=== PATIENT | female | born 1970 | race Caucasian/White ===

== ENCOUNTER 2016-11-17 22:56 | Emergency (ER) | payer OTHER ==
--- NOTE | 2016-11-18 02:39 | ED CLINICAL REPORT ---
Clinical Report - Physicians/Mid Levels [facility] [address] [place] [address] 11/17/2016 22:57 Patient: KEESHA OLIVAS Time Seen: 23:04 Nov 17 2016. Arrived- By private vehicle. Historian- patient. CPT: ER phys charges level 4 (#[id number]). HISTORY OF PRESENT ILLNESS Chief Complaint: PELVIC PAIN and VAGINAL PAIN. This started yesterday and still present. The symptoms are described as moderate. Modifying factors- relieved by rest. (Worse with exertion.). The patient has had pelvic pain and vaginal pain. No abnormal bleeding, vaginal discharge, pain with urination, urinary frequency or urgency of urination. No hematuria. (Stress incontinence.). Similar symptoms previously: Recent medical care: Not recently seen/assessed. REVIEW OF SYSTEMS No nausea, vomiting, diarrhea, fever or chills. No sore throat, cough, difficulty breathing, chest pain or skin rash. No enlarged lymph nodes or joint pain. All systems otherwise negative, except as recorded above. PAST HISTORY ( Admission CVA, discharged 2 days ago. Oxycodone filled 2 days ago. BEN and bladder sling. Congestive Heart Failure. CVA - Cerebrovascular Accident. Dyspnea. Chest Pain. Coronary Artery Disease. Pulmonary Embolism. Heart Disease. LNMP - Last Normal Menstrual Period. GERD. Liver lesion. Gastritis. Esophagitis. Hypertension. Cardiomyopathy. ADDITIONAL SURGERIES: Appendectomy. Bladder Suspension. Cardiac Procedures. Colonoscopy. Exploratory laparotomy. Gallbladder Surgery. Hysterectomy. Laparoscopy. Nasal septoplasty. Oophorectomy.). Medications: OxyCODONE HCl Oral. Carvedilol 6.25 mg, 2x a day. Atorvastatin Calcium Oral (Tablet 80 mg) 1 tablet, at bedtime. Aspirin Oral (Tablet Chewable 81 mg) 1 tablet, daily. Lorsartan 100mg, daily. Topiramate Oral (Tablet 25 mg) 1 tablet, at bedtime. Allergies: Amitriptyline. Toradol. SOCIAL HISTORY Never smoker. No alcohol use or drug use. ADDITIONAL NOTES The nursing notes have been reviewed. PHYSICAL EXAM Vital Signs: 11/17/2016 23:08 BP: 141/87. HR: 67. RR: 16. O2 saturation: 98%. Temp: 98.1 F. Pain level now: 8/10. Appearance: Alert. No acute distress. Anxious. HEENT: Normal external inspection. ENT: Pharynx normal. Neck: Neck supple. CVS: Heart sounds normal. Respiratory: No respiratory distress. Breath sounds normal. Chest nontender. Abdomen: Soft and nontender. Back: Normal external inspection. : No vaginal discharge or bleeding. Tenderness present on bimanual exam (Cystocele present with pain on motion.). (No sign of infection). Skin: Skin warm. Normal skin color. No rash. Extremities: Extremities nontender. Neuro: Oriented X 3. Mood/affect normal. No motor deficit. No sensory deficit. LABS, X-RAYS, AND EKG Laboratory Tests: UA-Culture if indicated: (SAUL: 11/18/2016 00:01) ( [facility] [place] Final results Test Result Flag Units (Reference) URINE COLOR YELLOW URINE APPEARANCE SLIGHTLY HAZY URINE GLUCOSE NEGATIVE (NEGATIVE) URINE BILIRUBIN NEGATIVE (NEGATIVE) URINE KETONE NEGATIVE (NEGATIVE) URINE SPECIFIC GRAVITY 1.020 (1.010-1.030) URINE PH 6.0 (5.0-8.0) URINE PROTEIN NEGATIVE (NEGATIVE) URINE UROBILINOGEN 0.2 EU/dL (0.2-1.0) URINE NITRITE POSITIVE (NEGATIVE) URINE BLOOD NEGATIVE (NEGATIVE) URINE LEUK ESTERASE POSITIVE (NEGATIVE) URINE RBC 0-1 rbc/hpf (0-1) URINE WBC 3-5 wbc/hpf (0-1) URINE EPITHELIAL CELLS 5-10 EPI/hpf (0-5) URINE BACTERIA MODERATE (2+ TO 3+) (NONE SEEN) URINE COMMENT CULTURE INDICATED TRICHOMONAS NOTED.URINE CULTURES ARE SET-UP BASED ON THE FOLLOWING CRITERIA:POSITIVE NITRITEPOSITIVE LEUKOCYTE ESTERASEGREATER THAN 10 WHITE BLOOD CELLSMODERATE (2+) OR GREATER BACTERIA CBC w Diff: (SAUL: 11/18/2016 00:20) ( [facility] [place]/18[place] 00:40) Final results Test Result Flag Units (Reference) WHITE BLOOD COUNT 8.2 K/uL (4.5-11.5) RED BLOOD COUNT 4.92 M/uL (4.00-5.20) HEMOGLOBIN 15.0 gm/dL (12.0-16.0) HEMATOCRIT 44.8 % (36.0-46.0) MEAN CELL VOLUME 91 fL (80-100) MEAN CORPUSCULAR HGB 31 pg (26-34) MEAN CORPUSCULAR HGB CONC 34 g/dL (31-37) RED CELL DISTRIBUTION WIDTH 13.0 % (11.6-14.8) PLATELET COUNT 231 K/uL (150-400) LYMPH % 31.9 % (25-40) MONO % 7.0 % (3-14) GRANULOCYTE % 61.1 (53-90) Culture, Urine: (SAUL: 11/18/2016 00:00) ( Msg[facility]cv[facility] 11/19/2016 11:24) IP Test Result Flag Units (Reference) CULTURE, URINE DATE: 11/19/16 PRELIM REPORT: PRELIMINARY REPORT #1 -- GNR QUANTITATIVE URINE GROWTH: GREATER THAN 100,000 CFU/mL ID AND SENS TO FOLLOW: IDENTIFICATION AND SENSITIVITY TO FOLLOW . PROGRESS AND PROCEDURES Patient/family counseled. Disposition: Discharged. Condition: stable. CLINICAL IMPRESSION Medium midline cystocele (Painful.). Acute urinary tract infection with cystitis. Out of meds. INSTRUCTIONS No strenuous activity. Rest. No sexual contact until released. Warnings: Further evaluation is necessary. GENERAL WARNINGS: Return or contact your physician immediately if your condition worsens or changes unexpectedly, if not improving as expected, or if other problems arise. Your Current Medications: CONTINUE TAKING THE FOLLOWING MEDICATIONS: Aspirin Oral : Tablet Chewable 81 mg, 1 tablet daily. Atorvastatin Calcium Oral : Tablet 80 mg, 1 tablet at bedtime. Carvedilol* : 6.25 mg 2x a day. Lorsartan* : 100mg daily. OxyCODONE HCl Oral. Topiramate Oral : Tablet 25 mg, 1 tablet at bedtime. Prescription Medications: Septra DS 800 mg / 160 mg: take 1 tablet orally every 12 hours for 7 days. Dispense fourteen (14). No refills. Substitution is permissible. Oxycodone/APAP 5 mg/325 mg: take 1 tablet orally every 6 hours as needed for pain. Dispense fifteen (15). No refills. Understanding of the discharge instructions verbalized by patient. Follow-up with: Peng Montoya MD, Obstetrics/Gynecology, , [facility], [address] [place] [address] Follow up in five days. Call for an appointment. Reason for referral: For evaluation of painful cystocele. (Electronically signed by Zafar Rivers MD 11/19/2016 13:38)
--- NOTE | 2016-11-18 02:39 | ED CLINICAL REPORT ---
Clinical Report - Physicians/Mid Levels [facility] [address] [place] [address] 11/17/2016 22:57 Patient: KEESHA OLIVAS Time Seen: 23:04 Nov 17 2016. Arrived- By private vehicle. Historian- patient. CPT: ER phys charges level 4 (#[id number]). HISTORY OF PRESENT ILLNESS Chief Complaint: PELVIC PAIN and VAGINAL PAIN. This started yesterday and still present. The symptoms are described as moderate. Modifying factors- relieved by rest. (Worse with exertion.). The patient has had pelvic pain and vaginal pain. No abnormal bleeding, vaginal discharge, pain with urination, urinary frequency or urgency of urination. No hematuria. (Stress incontinence.). Similar symptoms previously: Recent medical care: Not recently seen/assessed. REVIEW OF SYSTEMS No nausea, vomiting, diarrhea, fever or chills. No sore throat, cough, difficulty breathing, chest pain or skin rash. No enlarged lymph nodes or joint pain. All systems otherwise negative, except as recorded above. PAST HISTORY ( Admission CVA, discharged 2 days ago. Oxycodone filled 2 days ago. BEN and bladder sling. Congestive Heart Failure. CVA - Cerebrovascular Accident. Dyspnea. Chest Pain. Coronary Artery Disease. Pulmonary Embolism. Heart Disease. LNMP - Last Normal Menstrual Period. GERD. Liver lesion. Gastritis. Esophagitis. Hypertension. Cardiomyopathy. ADDITIONAL SURGERIES: Appendectomy. Bladder Suspension. Cardiac Procedures. Colonoscopy. Exploratory laparotomy. Gallbladder Surgery. Hysterectomy. Laparoscopy. Nasal septoplasty. Oophorectomy.). Medications: OxyCODONE HCl Oral. Carvedilol 6.25 mg, 2x a day. Atorvastatin Calcium Oral (Tablet 80 mg) 1 tablet, at bedtime. Aspirin Oral (Tablet Chewable 81 mg) 1 tablet, daily. Lorsartan 100mg, daily. Topiramate Oral (Tablet 25 mg) 1 tablet, at bedtime. Allergies: Amitriptyline. Toradol. SOCIAL HISTORY Never smoker. No alcohol use or drug use. ADDITIONAL NOTES The nursing notes have been reviewed. PHYSICAL EXAM Vital Signs: 11/17/2016 23:08 BP: 141/87. HR: 67. RR: 16. O2 saturation: 98%. Temp: 98.1 F. Pain level now: 8/10. Appearance: Alert. No acute distress. Anxious. HEENT: Normal external inspection. ENT: Pharynx normal. Neck: Neck supple. CVS: Heart sounds normal. Respiratory: No respiratory distress. Breath sounds normal. Chest nontender. Abdomen: Soft and nontender. Back: Normal external inspection. : No vaginal discharge or bleeding. Tenderness present on bimanual exam (Cystocele present with pain on motion.). (No sign of infection). Skin: Skin warm. Normal skin color. No rash. Extremities: Extremities nontender. Neuro: Oriented X 3. Mood/affect normal. No motor deficit. No sensory deficit. LABS, X-RAYS, AND EKG Laboratory Tests: UA-Culture if indicated: (SAUL: 11/18/2016 00:01) ( [facility] [place]18[place] 00:47) Final results Test Result Flag Units (Reference) URINE COLOR YELLOW URINE APPEARANCE SLIGHTLY HAZY URINE GLUCOSE NEGATIVE (NEGATIVE) URINE BILIRUBIN NEGATIVE (NEGATIVE) URINE KETONE NEGATIVE (NEGATIVE) URINE SPECIFIC GRAVITY 1.020 (1.010-1.030) URINE PH 6.0 (5.0-8.0) URINE PROTEIN NEGATIVE (NEGATIVE) URINE UROBILINOGEN 0.2 EU/dL (0.2-1.0) URINE NITRITE POSITIVE (NEGATIVE) URINE BLOOD NEGATIVE (NEGATIVE) URINE LEUK ESTERASE POSITIVE (NEGATIVE) URINE RBC 0-1 rbc/hpf (0-1) URINE WBC 3-5 wbc/hpf (0-1) URINE EPITHELIAL CELLS 5-10 EPI/hpf (0-5) URINE BACTERIA MODERATE (2+ TO 3+) (NONE SEEN) URINE COMMENT CULTURE INDICATED TRICHOMONAS NOTED.URINE CULTURES ARE SET-UP BASED ON THE FOLLOWING CRITERIA:POSITIVE NITRITEPOSITIVE LEUKOCYTE ESTERASEGREATER THAN 10 WHITE BLOOD CELLSMODERATE (2+) OR GREATER BACTERIA CBC w Diff: (SAUL: 11/18/2016 00:20) ( [facility] [place] 11/18/2016 00:40) Final results Test Result Flag Units (Reference) WHITE BLOOD COUNT 8.2 K/uL (4.5-11.5) RED BLOOD COUNT 4.92 M/uL (4.00-5.20) HEMOGLOBIN 15.0 gm/dL (12.0-16.0) HEMATOCRIT 44.8 % (36.0-46.0) MEAN CELL VOLUME 91 fL (80-100) MEAN CORPUSCULAR HGB 31 pg (26-34) MEAN CORPUSCULAR HGB CONC 34 g/dL (31-37) RED CELL DISTRIBUTION WIDTH 13.0 % (11.6-14.8) PLATELET COUNT 231 K/uL (150-400) LYMPH % 31.9 % (25-40) MONO % 7.0 % (3-14) GRANULOCYTE % 61.1 (53-90) Culture, Urine: (SAUL: 11/18/2016 00:00) ( MsgRcvd 11/19/2016 11:24) IP Test Result Flag Units (Reference) CULTURE, URINE DATE: 11/19/16 PRELIM REPORT: PRELIMINARY REPORT #1 -- GNR QUANTITATIVE URINE GROWTH: GREATER THAN 100,000 CFU/mL ID AND SENS TO FOLLOW: IDENTIFICATION AND SENSITIVITY TO FOLLOW . PROGRESS AND PROCEDURES Patient/family counseled. Disposition: Discharged. Condition: stable. CLINICAL IMPRESSION Medium midline cystocele (Painful.). Acute urinary tract infection with cystitis. Out of meds. INSTRUCTIONS No strenuous activity. Rest. No sexual contact until released. Warnings: Further evaluation is necessary. GENERAL WARNINGS: Return or contact your physician immediately if your condition worsens or changes unexpectedly, if not improving as expected, or if other problems arise. Your Current Medications: CONTINUE TAKING THE FOLLOWING MEDICATIONS: Aspirin Oral : Tablet Chewable 81 mg, 1 tablet daily. Atorvastatin Calcium Oral : Tablet 80 mg, 1 tablet at bedtime. Carvedilol* : 6.25 mg 2x a day. Lorsartan* : 100mg daily. OxyCODONE HCl Oral. Topiramate Oral : Tablet 25 mg, 1 tablet at bedtime. Prescription Medications: Septra DS 800 mg / 160 mg: take 1 tablet orally every 12 hours for 7 days. Dispense fourteen (14). No refills. Substitution is permissible. Oxycodone/APAP 5 mg/325 mg: take 1 tablet orally every 6 hours as needed for pain. Dispense fifteen (15). No refills. Understanding of the discharge instructions verbalized by patient. Follow-up with: Peng Montoya MD, Obstetrics/Gynecology, , [facility], [address] [place] [address] Follow up in five days. Call for an appointment. Reason for referral: For evaluation of painful cystocele. (Electronically signed by Zafar Rivers MD 11/19/2016 13:38)
--- NOTE | 2016-11-18 02:39 | ED ORDER SUMMARY ---
..... Patient: KEESHA OLIVAS OrderSheet [facility] VisitID: [id number] [place] [address] 46y, F Registration Date/Time: 11/17/2016 ORDER SHEET Weight: 77.1 kg (stated) Allergies: Toradol, Amitriptyline GENERAL ORDERS: UA-Culture if indicated Urgent (00:05 11/18/2016 Joaquín BAGLEY) (Ack 0:08 AMcQuoid ER Tech1) (0:14 KPage-Kuchan R.N.) CBC w Diff Urgent (00:11/18/2016 Joaquín BAGLEY) (Ack 0:08 AMcQuoid ER Tech1) (0:37 AMcQuoid ER Tech1) Pelvic Exam Setup (00:05 11/18/2016 Joaquín BAGLEY) (Ack 0:08 AMcQuoid ER Tech1) (0:47 KPage-Kuchan R.N.) MEDICATION ORDERS: IV FLUIDS: ORDER SHEET NOTES: [Electronically signed by Keke Win R.N. (03:41 11/18/2016)] [Electronically signed by Zafar Rivers MD (13:38 11/19/2016)] [Electronically locked/signed by Keke Win R.N. (03:41 11/18/2016)]
--- NOTE | 2016-11-18 02:39 | ED NURSING NOTES ---
Clinical Report - Nurses [facility] [address] [place] [address] 11/17/2016 22:57 [id number] Triage time 23:Nov 17 2016. Chief Complaint: ABDOMINAL PAIN. Alert. No acute distress. GABRIELA COMA SCORE: [place] Coma Scale: 15- eyes open spontaneously (4); best verbal response- oriented x 4 (5); best motor response- obeys commands (6). --23:19 Lalitha Velasquez R.N. 23:08 11/17/16. BP: 141/87. HR: 67. RR: 16. O2 saturation: 98%. Temp: 98.1 F. Pain level now: 01/09. --23:19 Lalitha Velasquez R.N. Weight: 77.1 kg stated. Height/Length: 66 inches Per Patient. BMI: 27.4. --23:17 Lalitha Velasquez R.N. Medications Topiramate Oral (Tablet 25 mg) 1 tablet, at bedtime. --23:09 Lalitha Velasquez R.N. Lorsartan 100mg, daily. --23:10 Lalitha Velasquez R.N. Aspirin Oral (Tablet Chewable 81 mg) 1 tablet, daily. --23:11 Lalitha Velasquez R.N. Atorvastatin Calcium Oral (Tablet 80 mg) 1 tablet, at bedtime. --23:11 Lalitha Velasquez R.N. Carvedilol 6.25 mg, 2x a day. --23:12 Lalitha Velasquez R.N. OxyCODONE HCl Oral. --23:26 Lalitha Velasquez R.N. Allergies Toradol. --23:12 Lalitha Velasquez R.N. Amitriptyline. --23:12 Lalitha Velasquez R.N. History Arrived by private vehicle. Historian: patient. Accompanied by family and mother. This started yesterday. She has had nausea. ( vaginal pain, vaginal protrusion, urine leaking). 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 PAST MEDICAL HX: Immunizations: status is unknown. Has had a hysterectomy. Denies current . SOCIAL HX: Never smoker. No alcohol use or drug use. No recent travel. No infectious disease exposure. No known contact with a sick individual. SELF HARM ASSESSMENT: A self harm assessment was performed. The patient answered "no" to the question "Do you have thoughts of harming or killing yourself?". FALL RISK ASSESSMENT: Fall risk assessment completed. No fall risk identified. NUTRITIONAL RISK ASSESSMENT: The nutritional risk assessment revealed no deficiencies. FUNCTIONAL ASSESSMENT: Functional assessment: no impairments noted. LEARNING NEEDS ASSESSMENT: The learning needs assessment revealed no barriers. ABUSE ASSESSMENT: Abuse assessment: The patient was asked "Do you feel safe in your home?". SKIN INTEGRITY ASSESSMENT: Skin integrity risk assessment completed. No skin integrity risk identified. --23:19 Lalitha Velasquez R.N. PROBLEMS: Congestive Heart Failure. CVA - Cerebrovascular Accident. Dyspnea. Chest Pain. Coronary Artery Disease. Pulmonary Embolism. Heart Disease. LNMP - Last Normal Menstrual Period. GERD. Liver lesion. Gastritis. Esophagitis. Hypertension. Cardiomyopathy. --23:15 Lalitha Velasquez R.N. ADDITIONAL SURGERIES: Appendectomy. Bladder Suspension. Cardiac Procedures. Colonoscopy. Exploratory laparotomy. Gallbladder Surgery. Hysterectomy. Laparoscopy. Nasal septoplasty. Oophorectomy. --23:15 Lalitha Velasquez R.N. Interventions ID band on patient. To room. --23:19 Lalitha Velasquez R.N. PHYSICAL ASSESSMENT Ambulatory to room. GENERAL / NEURO / PSYCH: Alert. Oriented X 4. Appears in no acute distress. RESPIRATORY: Respirations not labored. CVS: Capillary refill less than 2 seconds. GI / : The patient has had nausea. Abdomen soft. Abdominal tenderness in the lower abdomen. No abdominal distention or diarrhea. No emesis noted. ( pt states protrusion from vagina and difficult to hold urine). SKIN: Skin is warm and dry. --23:20 Lalitha Velasquez R.N. NURSING PROGRESS NOTES Patient gowned. Head of bed elevated. Patient identifiers checked. Call light placed in reach. Side rails up x 1. Bed placed in lowest position. Brakes of bed on. --23:20 Lalitha Velasquez R.N. 02:20. Plastic And Reconstructive Surgeon provided for the pelvic exam by the physician. --03:32 Shwetha Flowers. DISPOSITION / DISCHARGE Departure time: 02:41 Nov 18 2016. Condition at departure: improved. No learning barriers present. Discharge instructions provided and reviewed with the patient. Reviewed warnings. Reviewed medication(s). Treatments reviewed. Reviewed referrals. Work note given. Follow up contact number. Patient verbalized understanding. Written instructions provided in Japanese. The patient was discharged home and accompanied by parent. She left the Emergency Department ambulatory and via private vehicle. Parent driving. --03:41 Keke Win R.N. 03:39 11/18/16. BP: 144/90. HR: 69. RR: 18. O2 saturation: 99%. Temp: 98.1 F. Pain level now 4/10. --03:41 Keke Win R.N. Locked/Released at 11/18/2016 3:41 by Keke Win R.N.
--- NOTE | 2016-11-18 02:39 | ED NURSING NOTES ---
Clinical Report - Nurses [facility] [address] [place] [address] 11/17/2016 22:57 [id number] TRI[facility] Triage time 23:Nov 17 2016. Chief Complaint: ABDOMINAL PAIN. Alert. No acute distress. GABRIELA COMA SCORE: [place] Coma Scale: 15- eyes open spontaneously (4); best verbal response- oriented x 4 (5); best motor response- obeys commands (6). --23:19 Lalitha Velasquez R.N. 23:08 11/17/16. BP: 141/87. HR: 67. RR: 16. O2 saturation: 98%. Temp: 98.1 F. Pain level now: 01/09. --23:19 Lalitha Velasquez R.N. Weight: 77.1 kg stated. Height/Length: 66 inches Per Patient. BMI: 27.4. --23:17 Lalitha Velasquez R.N. Medications Topiramate Oral (Tablet 25 mg) 1 tablet, at bedtime. --23:09 Lalitha Velasquez R.N. Lorsartan 100mg, daily. --23:10 Lalitha Velasquez R.N. Aspirin Oral (Tablet Chewable 81 mg) 1 tablet, daily. --23:11 Lalitha Velasquez R.N. Atorvastatin Calcium Oral (Tablet 80 mg) 1 tablet, at bedtime. --23:11 Lalitha Velasquez R.N. Carvedilol 6.25 mg, 2x a day. --23:12 Lalitha Velasquez R.N. OxyCODONE HCl Oral. --23:26 Lalitha Velasquez R.N. Allergies Toradol. --23:12 Lalitha Velasquez R.N. Amitriptyline. --23:12 Lalitha Velasquez R.N. History Arrived by private vehicle. Historian: patient. Accompanied by family and mother. This started yesterday. She has had nausea. ( vaginal pain, vaginal protrusion, urine leaking). 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 PAST MEDICAL HX: Immunizations: status is unknown. Has had a hysterectomy. Denies current . SOCIAL HX: Never smoker. No alcohol use or drug use. No recent travel. No infectious disease exposure. No known contact with a sick individual. SELF HARM ASSESSMENT: A self harm assessment was performed. The patient answered "no" to the question "Do you have thoughts of harming or killing yourself?". FALL RISK ASSESSMENT: Fall risk assessment completed. No fall risk identified. NUTRITIONAL RISK ASSESSMENT: The nutritional risk assessment revealed no deficiencies. FUNCTIONAL ASSESSMENT: Functional assessment: no impairments noted. LEARNING NEEDS ASSESSMENT: The learning needs assessment revealed no barriers. ABUSE ASSESSMENT: Abuse assessment: The patient was asked "Do you feel safe in your home?". SKIN INTEGRITY ASSESSMENT: Skin integrity risk assessment completed. No skin integrity risk identified. --23:19 Lalitha Velasquez R.N. PROBLEMS: Congestive Heart Failure. CVA - Cerebrovascular Accident. Dyspnea. Chest Pain. Coronary Artery Disease. Pulmonary Embolism. Heart Disease. LNMP - Last Normal Menstrual Period. GERD. Liver lesion. Gastritis. Esophagitis. Hypertension. Cardiomyopathy. --23:15 Lalitha Velasquez R.N. ADDITIONAL SURGERIES: Appendectomy. Bladder Suspension. Cardiac Procedures. Colonoscopy. Exploratory laparotomy. Gallbladder Surgery. Hysterectomy. Laparoscopy. Nasal septoplasty. Oophorectomy. --23:15 Lalitha Velasquez R.N. Interventions ID band on patient. To room. --23:19 Lalitha Velasquez R.N. PHYSICAL ASSESSMENT Ambulatory to room. GENERAL / NEURO / PSYCH: Alert. Oriented X 4. Appears in no acute distress. RESPIRATORY: Respirations not labored. CVS: Capillary refill less than 2 seconds. GI / : The patient has had nausea. Abdomen soft. Abdominal tenderness in the lower abdomen. No abdominal distention or diarrhea. No emesis noted. ( pt states protrusion from vagina and difficult to hold urine). SKIN: Skin is warm and dry. --23:20 Lalitha Velasquez R.N. NURSING PROGRESS NOTES Patient gowned. Head of bed elevated. Patient identifiers checked. Call light placed in reach. Side rails up x 1. Bed placed in lowest position. Brakes of bed on. --23:20 Lalitha Velasquez R.N. 02:20. Epic Trainer provided for the pelvic exam by the physician. --03:32 Shwetha Flowers. DISPOSITION / DISCHARGE Departure time: 02:41 Nov 18 2016. Condition at departure: improved. No learning barriers present. Discharge instructions provided and reviewed with the patient. Reviewed warnings. Reviewed medication(s). Treatments reviewed. Reviewed referrals. Work note given. Follow up contact number. Patient verbalized understanding. Written instructions provided in Nepali. The patient was discharged home and accompanied by parent. She left the Emergency Department ambulatory and via private vehicle. Parent driving. --03:41 Keke Win R.N. 03:39 11/18/16. BP: 144/90. HR: 69. RR: 18. O2 saturation: 99%. Temp: 98.1 F. Pain level now 4/10. --03:41 Keke Win R.N. Locked/Released at 11/18/2016 3:41 by Keke Win R.N.
--- NOTE | 2016-11-18 02:39 | ED ORDER SUMMARY ---
..... Patient: KEESHA OLIVAS OrderSheet [facility] VisitID: [id number] [place] [address] 46y, F Registration Date/Time: 11/17/2016 ORDER SHEET Weight: 77.1 kg (stated) Allergies: Toradol, Amitriptyline GENERAL ORDERS: UA-Culture if indicated Urgent (00:05 11/18/2016 Joaquín BAGLEY) (Ack 0:08 AMcQuoid ER Tech1) (0:14 KPage-Kuchan R.N.) CBC w Diff Urgent (00:11/18/2016 Joaquín BAGLEY) (Ack 0:08 AMcQuoid ER Tech1) (0:37 AMcQuoid ER Tech1) Pelvic Exam Setup (00:05 11/18/2016 Joaquín BAGLEY) (Ack 0:08 AMcQuoid ER Tech1) (0:47 KPage-Kuchan R.N.) MEDICATION ORDERS: IV FLUIDS: ORDER SHEET NOTES: [Electronically signed by Keke Win R.N. (03:41 11/18/2016)] [Electronically signed by Zafar Rivers MD (13:38 11/19/2016)] [Electronically locked/signed by Keke Win R.N. (03:41 11/18/2016)]
--- NOTE | 2016-11-19 13:38 | ED MAR SUMMARY ---
..... Medication Administration Record [facility] [address], [place] [id number] Patient: KEESHA OLIVAS Visit ID: [id number] 46y, F Weight: 77.1 kg Height/Length: 66 in BMI: 27.4 ALLERGIES: Amitriptyline, Toradol
--- NOTE | 2016-11-19 13:38 | ED MED RECONCILIATION SUMMARY ---
Patient: KEESHA OLIVAS Medication Reconciliation Report [facility] VisitID: [id number] [place] [address] 46y, F Registration Date/Time: 11/17/2016 Weight: 77.1 kg Height/Length: 66 in. BMI: 27.4 ALLERGIES: Amitriptyline, Toradol The patient's Home Medications are listed below: CONTINUE TAKING THE FOLLOWING MEDICATIONS: Aspirin Oral (81 mg) 1 tablet, daily Atorvastatin Calcium Oral (80 mg) 1 tablet, at bedtime Carvedilol 6.25 mg, 2x a day Lorsartan 100mg, daily OxyCODONE HCl Oral Topiramate Oral (25 mg) 1 tablet, at bedtime The source(s) of the original Home Medication information: Not obtained. The following Medications were given to the patient in the Emergency Department: None. The following Medications were prescribed to the patient: Septra DS 800 mg / 160 mg: take 1 tablet orally every 12 hours for 7 days. Dispense fourteen (14). No refills. Substitution is permissible. -- Zafar Rivers MD Oxycodone/APAP 5 mg/325 mg: take 1 tablet orally every 6 hours as needed for pain. Dispense fifteen (15). No refills. -- Zafar Rivers MD
--- NOTE | 2016-11-19 13:38 | ED DISCHARGE INSTRUCTIONS ---
Patient: KEESHA OLIVAS General Instructions [facility] VisitID: [id number] [place] [address] 46y, F Registration Date/Time: 11/17/2016 Medium midline cystocele (Painful.). Acute urinary tract infection with cystitis. Out of meds. INSTRUCTIONS No strenuous activity. Rest. No sexual contact until released. Warnings: Further evaluation is necessary. GENERAL WARNINGS: Return or contact your physician immediately if your condition worsens or changes unexpectedly, if not improving as expected, or if other problems arise. Your Current Medications: CONTINUE TAKING THE FOLLOWING MEDICATIONS: Aspirin Oral : Tablet Chewable 81 mg, 1 tablet daily. Atorvastatin Calcium Oral : Tablet 80 mg, 1 tablet at bedtime. Carvedilol* : 6.25 mg 2x a day. Lorsartan* : 100mg daily. OxyCODONE HCl Oral. Topiramate Oral : Tablet 25 mg, 1 tablet at bedtime. Prescription Medications: Septra DS 800 mg / 160 mg: take 1 tablet orally every 12 hours for 7 days. Dispense fourteen (14). No refills. Substitution is permissible. Oxycodone/APAP 5 mg/325 mg: take 1 tablet orally every 6 hours as needed for pain. Dispense fifteen (15). No refills. Understanding of the discharge instructions verbalized by patient. Follow-up with: Peng Montoya MD, Obstetrics/Gynecology, , [facility], [address] [place] [address] Follow up in five days. Call for an appointment. Reason for referral: For evaluation of painful cystocele. ADDITIONAL INFORMATION Bladder Infection,Female (Adult) A bladder infection ("cystitis" or "UTI") usually causes a constant urge to urinate and a burning when passing urine. Urine may be cloudy, smelly or dark. There may be pain in the lower abdomen. A bladder infection occurs when bacteria from the vaginal area enter the bladder opening (urethra). This can occur from sexual intercourse, wearing tight clothing, dehydration and other factors. Home Care: Drink lots of fluids (at least 6-8 glasses a day, unless you must restrict fluids for other medical reasons). This will force the medicine into your urinary system and flush the bacteria out of your body. Avoid sexual intercourse until your symptoms are gone. Avoid caffeine, alcohol and spicy foods. These can irritate the bladder. A bladder infection is treated with antibiotics. You may also be given Pyridium (generic = phenazopyridine) to reduce the burning sensation. This medicine will cause your urine to become a bright orange color. The orange urine may stain clothing. You may wear a pad or panty-liner to protect clothing. Preventing Future Infections: Always wipe from front to back after a bowel movement. Keep the genital area clean and dry. Drink plenty of fluids each day to avoid dehydration. Both sexual partners should wash before intercourse. Urinate right after intercourse to flush out the bladder. Wear cotton underwear and cotton-lined panty hose; avoid tight-fitting pants. If you are on control pills and are having frequent bladder infections, discuss with your doctor. Follow Up: Return to this facility or see your doctor if ALL symptoms are not gone after three days of treatment. Get Prompt Medical Attention if any of the following occur: Fever of 100.4F (38C) or higher, or as directed by your healthcare provider No improvement by the third day of treatment Increasing back or abdominal pain Repeated vomiting; unable to keep medicine down Weakness, dizziness or fainting Vaginal discharge Pain, redness or swelling in the labia (outer vaginal area) You have been given the following additional information: Bladder Infection, Female (Adult) No strenuous activity. Rest. (Electronically signed by Zafar Rivers MD 11/19/2016 13:38)
--- NOTE | 2016-11-19 13:38 | ED MED RECONCILIATION SUMMARY ---
Patient: KEESHA OLIVAS Medication Reconciliation Report [facility] VisitID: [id number] [place] [address] 46y, F Registration Date/Time: 11/17/2016 Weight: 77.1 kg Height/Length: 66 in. BMI: 27.4 ALLERGIES: Amitriptyline, Toradol The patient's Home Medications are listed below: CONTINUE TAKING THE FOLLOWING MEDICATIONS: Aspirin Oral (81 mg) 1 tablet, daily Atorvastatin Calcium Oral (80 mg) 1 tablet, at bedtime Carvedilol 6.25 mg, 2x a day Lorsartan 100mg, daily OxyCODONE HCl Oral Topiramate Oral (25 mg) 1 tablet, at bedtime The source(s) of the original Home Medication information: Not obtained. The following Medications were given to the patient in the Emergency Department: None. The following Medications were prescribed to the patient: Septra DS 800 mg / 160 mg: take 1 tablet orally every 12 hours for 7 days. Dispense fourteen (14). No refills. Substitution is permissible. -- Zafar Rivers MD Oxycodone/APAP 5 mg/325 mg: take 1 tablet orally every 6 hours as needed for pain. Dispense fifteen (15). No refills. -- Zafar Rivers MD
--- NOTE | 2016-11-19 13:38 | ED DISCHARGE INSTRUCTIONS ---
Patient: KEESHA OLIVAS General Instructions [facility] VisitID: [id number] [place] [address] 46y, F Registration Date/Time: 11/17/2016 Medium midline cystocele (Painful.). Acute urinary tract infection with cystitis. Out of meds. INSTRUCTIONS No strenuous activity. Rest. No sexual contact until released. Warnings: Further evaluation is necessary. GENERAL WARNINGS: Return or contact your physician immediately if your condition worsens or changes unexpectedly, if not improving as expected, or if other problems arise. Your Current Medications: CONTINUE TAKING THE FOLLOWING MEDICATIONS: Aspirin Oral : Tablet Chewable 81 mg, 1 tablet daily. Atorvastatin Calcium Oral : Tablet 80 mg, 1 tablet at bedtime. Carvedilol* : 6.25 mg 2x a day. Lorsartan* : 100mg daily. OxyCODONE HCl Oral. Topiramate Oral : Tablet 25 mg, 1 tablet at bedtime. Prescription Medications: Septra DS 800 mg / 160 mg: take 1 tablet orally every 12 hours for 7 days. Dispense fourteen (14). No refills. Substitution is permissible. Oxycodone/APAP 5 mg/325 mg: take 1 tablet orally every 6 hours as needed for pain. Dispense fifteen (15). No refills. Understanding of the discharge instructions verbalized by patient. Follow-up with: Peng Montoya MD, Obstetrics/Gynecology, , [facility], [address] [place] [address] Follow up in five days. Call for an appointment. Reason for referral: For evaluation of painful cystocele. ADDITIONAL INFORMATION Bladder Infection,Female (Adult) A bladder infection ("cystitis" or "UTI") usually causes a constant urge to urinate and a burning when passing urine. Urine may be cloudy, smelly or dark. There may be pain in the lower abdomen. A bladder infection occurs when bacteria from the vaginal area enter the bladder opening (urethra). This can occur from sexual intercourse, wearing tight clothing, dehydration and other factors. Home Care: Drink lots of fluids (at least 6-8 glasses a day, unless you must restrict fluids for other medical reasons). This will force the medicine into your urinary system and flush the bacteria out of your body. Avoid sexual intercourse until your symptoms are gone. Avoid caffeine, alcohol and spicy foods. These can irritate the bladder. A bladder infection is treated with antibiotics. You may also be given Pyridium (generic = phenazopyridine) to reduce the burning sensation. This medicine will cause your urine to become a bright orange color. The orange urine may stain clothing. You may wear a pad or panty-liner to protect clothing. Preventing Future Infections: Always wipe from front to back after a bowel movement. Keep the genital area clean and dry. Drink plenty of fluids each day to avoid dehydration. Both sexual partners should wash before intercourse. Urinate right after intercourse to flush out the bladder. Wear cotton underwear and cotton-lined panty hose; avoid tight-fitting pants. If you are on control pills and are having frequent bladder infections, discuss with your doctor. Follow Up: Return to this facility or see your doctor if ALL symptoms are not gone after three days of treatment. Get Prompt Medical Attention if any of the following occur: Fever of 100.4F (38C) or higher, or as directed by your healthcare provider No improvement by the third day of treatment Increasing back or abdominal pain Repeated vomiting; unable to keep medicine down Weakness, dizziness or fainting Vaginal discharge Pain, redness or swelling in the labia (outer vaginal area) You have been given the following additional information: Bladder Infection, Female (Adult) No strenuous activity. Rest. (Electronically signed by Zafar Rivers MD 11/19/2016 13:38)
--- NOTE | 2016-11-19 13:38 | ED MAR SUMMARY ---
..... Medication Administration Record [facility] [address] [place], [place] [id number] Patient: KEESHA OLIVAS Visit ID: [id number] 46y, F Weight: 77.1 kg Height/Length: 66 in BMI: 27.4 ALLERGIES: Amitriptyline, Toradol
== END 2016-11-18 02:40 | disposition home or self-care (01) ==
LOC: ED SRH 22:56
DX: N30.00 Acute cystitis without hematuria (principal); Z88.6 Allergy status to analgesic agent; N81.11 Cystocele, midline; I25.10 Atherosclerotic heart disease of native coronary artery without angina pectoris; K21.9 Gastro-esophageal reflux disease without esophagitis; I11.0 Hypertensive heart disease with heart failure; I50.9 Heart failure, unspecified; I42.9 Cardiomyopathy, unspecified; Z79.82 Long term (current) use of aspirin; Z79.899 Other long term (current) drug therapy
CPT/HCPCS: 90004; 90074; 90148; 90469; 95059